=== PATIENT | male | born 1960 ===

== ENCOUNTER 2018-04-16 07:15 | Day surgery (SDC) | payer OTHER ==
[2018-04-16 07:36] VITALS: BMI 32.8
--- NOTE | 2018-04-16 09:36 | CP.SDSHP ---
Same Day Surgery H & P - History Proposed Procedure: COLONSCOPY Pre-Op Diagnosis: SEE NOTES - Previous Medical/Surgical History Cardiac: Hypertension Misc: Other Pain: 2.Mild Pain - Allergies Allergies: Allergies No Known Allergies Allergy (Verified 04/16/18 07:35) - Physical Exam General Appearance: N Vital Signs: Vital Signs 04/16/18 07:39 Temperature 97.8 F Pulse Rate 80 Respiratory 16 Rate Blood Pressure 157/89 H O2 Sat by Pulse 100 Oximetry Mental Status: Alert & Oriented x3 Neuro: WNL Heart: Other Lungs: WNL GI: WNL - {Optional Preform as Required} Breast: WNL Abdomen: Other Rectal: WNL Integument: WNL : WNL Ortho: WNL ENT: WNL - Impression Pt. Evaluated Today:Candidate for Anesthesia & Procedure: Yes - Date & Time Time: 09:36 Short Stay Discharge - Short Stay Discharge Admitting Diagnosis/Reason for Visit: ENCOUNTER FOR SCREENING FOR MALIGNANT NEOPLASM OF Disposition: HOME/ ROUTINE
[2018-04-16] MEDS ORDERED: Lidocaine Hydrochloride 5 ML INJ ONE (09:41)
[2018-04-16] MEDS ORDERED: Propofol 10 mg/ml Inj (20 ML) ONE ×2 (09:41→09:52)
[2018-04-16] MEDS ORDERED: Glucagon Recombinant 1 mg Inj ONE (09:53)
[2018-04-16] MEDS ORDERED: Belladonna-Phenobarbital PO ONE (10:15)
[2018-04-16 10:16] VITALS: TEMP 97
[2018-04-16 10:57] VITALS: BP 124/78; PULSE 72; RESP 12; O2SAT 100
== END 2018-04-16 10:53 | disposition home or self-care (01) ==
LOC: C.ENDO 07:15
PROVIDERS: ATTEND Specialist
DX: D12.2 Benign neoplasm of ascending colon (principal); D12.5 Benign neoplasm of sigmoid colon; K57.90 Diverticulosis of intestine, part unspecified, without perforation or abscess without bleeding; K64.8 Other hemorrhoids
CPT/HCPCS: 45385; 88305; J1610; J2704